=== PATIENT | male | born 1950 | race Caucasian/White ===

== ENCOUNTER 2017-02-27 01:05 | Inpatient (IN) | payer OTHER, MEDICAID ==
[~2017-02-27] VITALS: Ht 180.3 cm; Wt 113.8 kg
[~2017-02-27 01:05] MED LIST: ACET-1770 PO; AMOX1TAB64 PO; ASPI-496 PO; ASPI-621 PO; ATOR10TA PO; CARV12.52 PO; CHLO10TA2 PO; CLOP75TA22; DIVA250T4 PO; DOCU-30 PO; ENAL5TAB34 PO; FAMO-79 PO; FINA5TAB PO; FINA5TAB4 PO; HYDR-3138 PO; HYDR-3341 PO; INSU100C SQ-INSULIN; INSU100V10 SQ-INSULIN; LEVO750T26 PO; LISI-170 PO; LISI5TAB7 PO; MAGN400O4 PO; METF500T4 PO; METO25TA35 PO; METO25TA4 PO; MORP-52 PO; MORP30TA81 PO; NPH,100V SQ; ONDA4TAB7 PO; OXYC10TA6 PO; POLY17PO5 PO; POTA20TA91 PO; PREG100C PO; RIVA20TA PO; SIMV20TA PO; SOLI5TAB PO; TAMS-11 PO; TICA90TA PO; insulin; plavix
[2017-02-27] MEDS ORDERED: ASPIRIN 81 MG TABLET CHEW PO ONE (02:00)
[2017-02-27 02:31] LABS: BLOOD UREA NITROGEN 51 mg/dL (7-18)
[2017-02-27 02:38] LABS: ASPARTATE AMINO TRANSFERASE 1038 U/L (15-37)
[2017-02-27 02:43] LABS: IS PT STATUS REG ER OR PRE ER? YES
[2017-02-27] MEDS ORDERED: ASPIRIN 81 MG TABLET CHEW ONE (03:02)
[2017-02-27] MEDS ORDERED: SODIUM CHLORIDE 0.9% 1,000 ML IV ONE (04:15)
[2017-02-27] MEDS ORDERED: POLYETHYLENE GLYCOL 17 GM PACKET PO PRN (06:00)
[2017-02-27] MEDS ORDERED: DOCUSATE 100 MG CAPSULE PO PRN (06:00)
[2017-02-27] MEDS ORDERED: morphine SULFATE 10 MG/ML, 1ML IVPush PRN (06:00)
[2017-02-27] MEDS ORDERED: HYDROcodone/APAP 5/325 TABLET PO PRN (06:00)
[2017-02-27] MEDS ORDERED: ONDANSETRON 2MG/ML, 2ML IVPush PRN (06:00)
[2017-02-27] MEDS ORDERED: ACETAMINOPHEN 325 MG TABLET PO PRN (06:00)
[2017-02-27] MEDS: ENOXAPARIN 40 MG/0.4 ML SQ SCH (06:03)
[2017-02-27] MEDS: SODIUM CHLORIDE 0.9% 1,000 ML IV SCH ×2 (06:03→21:58)
[2017-02-27 06:31] VITALS: BP 98/62
[2017-02-27] MEDS: CARVEDILOL 12.5 MG TABLET PO SCH ×2 (06:39→16:58)
[2017-02-27] MEDS: INSULIN ASPART 100 UNITS/ML, PEN SQ-INSULIN SCH ×4 (07:00→21:00)
[2017-02-27] MEDS ORDERED: DIVALPROEX 125 MG TABLET.DR PO SCH (09:00)
[2017-02-27] MEDS: SENNA/DOCUSATE TABLET PO SCH (09:00)
[2017-02-27] MEDS: TICAGRELOR 90 MG TABLET PO SCH ×2 (11:54→21:59)
[2017-02-27] MEDS: FINASTERIDE 5 MG TABLET PO SCH (11:54)
[2017-02-27] MEDS: PREGABALIN 100 MG CAPSULE PO SCH ×3 (11:55→21:59)
[2017-02-27] MEDS: ASPIRIN 81 MG TABLET EC PO SCH (11:55)
[2017-02-27] MEDS: DIVALPROEX 125 MG CAP.SPRINK PO SCH ×2 (12:10→21:59)
[2017-02-27 12:38] VITALS: BP 121/68
[2017-02-27 16:53] VITALS: BP 144/101
[2017-02-27 17:51] VITALS: BP 136/89
[2017-02-27 19:43] VITALS: BP 143/73
[2017-02-27] MEDS: FAMOTIDINE 20 MG TABLET PO SCH (21:59)
[2017-02-27] MEDS: TAMSULOSIN 0.4 MG CAP.ER.24H PO SCH (21:59)
[2017-02-28 01:21] VITALS: BP 111/59
[2017-02-28] MEDS: CARVEDILOL 12.5 MG TABLET PO SCH ×2 (06:00→16:55)
[2017-02-28] MEDS: ENOXAPARIN 40 MG/0.4 ML SQ SCH (06:00)
[2017-02-28 06:09] VITALS: BP 120/72
[2017-02-28 07:35] VITALS: BP 117/48
[2017-02-28 08:57] VITALS: BP 124/67
[2017-02-28] MEDS: FINASTERIDE 5 MG TABLET PO SCH (08:58)
[2017-02-28] MEDS: ASPIRIN 81 MG TABLET EC PO SCH (08:59)
[2017-02-28] MEDS: TICAGRELOR 90 MG TABLET PO SCH ×2 (08:59→20:42)
[2017-02-28] MEDS: PREGABALIN 100 MG CAPSULE PO SCH ×3 (08:59→20:42)
[2017-02-28] MEDS: SENNA/DOCUSATE TABLET PO SCH (08:59)
[2017-02-28] MEDS: DIVALPROEX 125 MG CAP.SPRINK PO SCH ×2 (08:59→20:40)
[2017-02-28] MEDS: INSULIN ASPART 100 UNITS/ML, PEN SQ-INSULIN SCH ×4 (09:48→20:40)
[2017-02-28 12:45] VITALS: BP 125/55
[2017-02-28 19:00] VITALS: BP 125/73
[2017-02-28] MEDS: TAMSULOSIN 0.4 MG CAP.ER.24H PO SCH (20:40)
[2017-02-28] MEDS: FAMOTIDINE 20 MG TABLET PO SCH (20:41)
[2017-03-01 01:01] VITALS: BP 104/69
[2017-03-01] MEDS: CARVEDILOL 12.5 MG TABLET PO SCH ×2 (05:06→17:48)
[2017-03-01] MEDS: ENOXAPARIN 40 MG/0.4 ML SQ SCH (05:12)
[2017-03-01 05:44] LABS: ASPARTATE AMINO TRANSFERASE 72 U/L (15-37); BLOOD UREA NITROGEN 31 mg/dL (7-18)
[2017-03-01 06:12] LABS: DIFF TOTAL CELLS COUNTED 100 CELL DIFF
[2017-03-01 06:20] LABS: ANISOCYTOSIS 1+; VERIFY COUNTS? YES
[2017-03-01 06:21] LABS: HYPOCHROMIA 1+; POLYCHROMASIA 1+
[2017-03-01 06:52] VITALS: BP 133/70
[2017-03-01] MEDS: INSULIN ASPART 100 UNITS/ML, PEN SQ-INSULIN SCH ×4 (08:49→21:39)
[2017-03-01] MEDS: TICAGRELOR 90 MG TABLET PO SCH ×2 (08:50→21:38)
[2017-03-01] MEDS: FINASTERIDE 5 MG TABLET PO SCH (08:50)
[2017-03-01] MEDS: PREGABALIN 100 MG CAPSULE PO SCH ×3 (08:50→21:38)
[2017-03-01] MEDS: ASPIRIN 81 MG TABLET EC PO SCH (08:50)
[2017-03-01] MEDS: DIVALPROEX 125 MG CAP.SPRINK PO SCH ×2 (08:50→21:38)
[2017-03-01] MEDS: SENNA/DOCUSATE TABLET PO SCH (08:57)
[2017-03-01 12:32] VITALS: BP 147/77
[2017-03-01 12:39] LABS: IS PT STATUS REG ER OR PRE ER? NO
[2017-03-01] MEDS: SODIUM CHLORIDE 0.9% 1,000 ML IV SCH (13:14)
[2017-03-01 14:30] LABS: IS PT STATUS REG ER OR PRE ER? NO
[2017-03-01 19:10] VITALS: BP 138/80
[2017-03-01] MEDS: FAMOTIDINE 20 MG TABLET PO SCH (21:38)
[2017-03-01] MEDS: TAMSULOSIN 0.4 MG CAP.ER.24H PO SCH (21:38)
[2017-03-02 01:00] VITALS: BP 136/74
[2017-03-02] MEDS: ENOXAPARIN 40 MG/0.4 ML SQ SCH (05:26)
[2017-03-02] MEDS: SODIUM CHLORIDE 0.9% 1,000 ML IV SCH (05:26)
[2017-03-02] MEDS: CARVEDILOL 12.5 MG TABLET PO SCH ×2 (05:26→16:49)
[2017-03-02 06:27] LABS: ASPARTATE AMINO TRANSFERASE 37 U/L (15-37); BLOOD UREA NITROGEN 25 mg/dL (7-18)
[2017-03-02] MEDS: INSULIN ASPART 100 UNITS/ML, PEN SQ-INSULIN SCH ×3 (07:00→16:00)
[2017-03-02 07:05] VITALS: BP 145/77
[2017-03-02] MEDS: SENNA/DOCUSATE TABLET PO SCH (09:00)
[2017-03-02] MEDS: FINASTERIDE 5 MG TABLET PO SCH (09:10)
[2017-03-02] MEDS: TICAGRELOR 90 MG TABLET PO SCH (09:10)
[2017-03-02] MEDS: ASPIRIN 81 MG TABLET EC PO SCH (09:10)
[2017-03-02] MEDS: PREGABALIN 100 MG CAPSULE PO SCH ×2 (09:10→16:49)
[2017-03-02] MEDS: DIVALPROEX 125 MG CAP.SPRINK PO SCH (09:10)
[2017-03-02 12:10] VITALS: BP 123/66
== END 2017-03-02 17:09 | disposition home or self-care (01) | DRG 683 ==
LOC: ED 03:08 → EDIP 04:15 → 4EST 05:45
PROVIDERS: ADMIT Family Medicine; ATTEND Family Medicine
DX: N17.0 Acute kidney failure with tubular necrosis (principal); I50.22 Chronic systolic (congestive) heart failure; E44.0 Moderate protein-calorie malnutrition; R07.9 Chest pain, unspecified; D64.9 Anemia, unspecified; E11.42 Type 2 diabetes mellitus with diabetic polyneuropathy; E11.65 Type 2 diabetes mellitus with hyperglycemia; E86.0 Dehydration; Z66 Do not resuscitate; I25.10 Atherosclerotic heart disease of native coronary artery without angina pectoris; I11.0 Hypertensive heart disease with heart failure; I25.2 Old myocardial infarction; E66.01 Morbid (severe) obesity due to excess calories; R74.0 Nonspecific elevation of levels of transaminase and lactic acid dehydrogenase [LDH]; Z53.20 Procedure and treatment not carried out because of patient's decision for unspecified reasons; E11.51 Type 2 diabetes mellitus with diabetic peripheral angiopathy without gangrene; J44.9 Chronic obstructive pulmonary disease, unspecified; Z86.73 Personal history of transient ischemic attack (TIA), and cerebral infarction without residual deficits; Z89.511 Acquired absence of right leg below knee; Z95.1 Presence of aortocoronary bypass graft; Z95.5 Presence of coronary angioplasty implant and graft; Z90.49 Acquired absence of other specified parts of digestive tract; Z68.35 Body mass index [BMI] 35.0-35.9, adult; Z79.82 Long term (current) use of aspirin; Z79.4 Long term (current) use of insulin; Z79.899 Other long term (current) drug therapy; Z81.1 Family history of alcohol abuse and dependence; Z82.49 Family history of ischemic heart disease and other diseases of the circulatory system
CPT/HCPCS: 36415; 71010; 76700; 80053; 82962; 83690; 84484; 85025; 93005; 93306; 99285; J1650; J1815; J7030

== ENCOUNTER 2017-07-09 15:54 | Inpatient (IN) | payer OTHER, MEDICAID ==
[~2017-07-09] VITALS: Ht 180.3 cm; Wt 101.0 kg
[~2017-07-09 15:54] MED LIST changes: -CLOP75TA22; +CLOP75TA52; +DOCU-131 PO; -DOCU-30 PO; -ENAL5TAB34 PO; +ENAL5TAB70 PO; -HYDR-3138 PO; +HYDR-3237 PO; -INSU100V10 SQ-INSULIN; +INSU100V11 SQ-INSULIN; -MAGN400O4 PO; +MAGN400O7 PO; -SOLI5TAB PO; +SOLI5TAB2 PO
[2017-07-09] MEDS ORDERED: FURO40TA6 PO (16:17)
[2017-07-09] MEDS ORDERED: GLIP5POW PO (16:17)
[2017-07-09] MEDS ORDERED: POLY17PO3 PO (16:17)
[2017-07-09] MEDS ORDERED: LACT1CAP24 PO (16:17)
[2017-07-09] MEDS ORDERED: CALC-451 PO (16:17)
[2017-07-09] MEDS ORDERED: NPH,100V SQ (16:17)
[2017-07-09] MEDS ORDERED: POTA99TA24 PO (16:17)
[2017-07-09] MEDS ORDERED: MELA3TAB62 PO (16:17)
[2017-07-09] MEDS ORDERED: LOVA20TA2 PO (16:17)
[2017-07-09] MEDS ORDERED: SODIUM CHLORIDE FLUSH 10ML SYR IVF ONE (16:30)
[2017-07-09] MEDS ORDERED: PIPERACILLIN/TAZO/PMX 3.375GM 50 ML IVPB ONE (16:30)
[2017-07-09] MEDS ORDERED: PIPERACILLIN/TAZO/PMX 3.375GM 50 ML ONE (16:54)
[2017-07-09 17:43] LABS: HEMATOCRIT 35.6 % (39.2-51.8); HEMOGLOBIN 11.9 g/dL (13.7-18.0); WHITE BLOOD COUNT 10.4 x10^3/uL (3.4-10)
[2017-07-09 17:52] LABS: ASPARTATE AMINO TRANSFERASE 11 U/L (15-37); BLOOD UREA NITROGEN 52 mg/dL (7-18)
[2017-07-09 19:00] VITALS: BP 105/63
[2017-07-09] MEDS ORDERED: hydrALAzine 20 MG/ML, 1ML IVPush PRN (19:00)
[2017-07-09] MEDS: CARVEDILOL 12.5 MG TABLET PO SCH (19:00)
[2017-07-09] MEDS ORDERED: ONDANSETRON ODT 4 MG PO PRN (19:00)
[2017-07-09] MEDS ORDERED: DOCUSATE 100 MG CAPSULE PO PRN (19:00)
[2017-07-09] MEDS ORDERED: ACETAMINOPHEN 325 MG TABLET PO PRN (19:00)
[2017-07-09] MEDS ORDERED: PHARMACY MAY ADJ FOR RENAL FX MC PRN (20:00)
[2017-07-09] MEDS ORDERED: MELATONIN 3 MG TABLET PO PRN (21:00)
[2017-07-09] MEDS: FAMOTIDINE 20 MG TABLET PO SCH (22:01)
[2017-07-09] MEDS: TICAGRELOR 90 MG TABLET PO SCH (22:01)
[2017-07-09] MEDS: PREGABALIN 100 MG CAPSULE PO SCH (22:01)
[2017-07-09] MEDS: TAMSULOSIN 0.4 MG CAP.ER.24H PO SCH (22:02)
[2017-07-09] MEDS: LACTOBACILLUS CHEW TABLET PO SCH (22:02)
[2017-07-09] MEDS: DIVALPROEX 125 MG TABLET.DR PO SCH (22:02)
[2017-07-09] MEDS: FUROSEMIDE 40 MG TABLET PO SCH (22:02)
[2017-07-09] MEDS: CALCIUM/VITAMIN D3 250-125 TABLET PO SCH (22:03)
[2017-07-09] MEDS: LOVASTATIN 40 MG TABLET PO SCH (22:03)
[2017-07-09] MEDS: HEPARIN 5,000 UNITS/ML, 1ML SQ SCH (22:04)
[2017-07-09] MEDS: INSULIN ASPART 100 UNITS/ML, PEN SQ-INSULIN SCH (22:28)
[2017-07-09] MEDS: INSULIN NPH HUMAN 100 UNIT/ML, 3ML VIAL SQ-INSULIN SCH (22:29)
[2017-07-10] MEDS: PIPERACILLIN/TAZO/PMX 3.375GM 50 ML IV SCH ×3 (00:52→16:09)
[2017-07-10 03:25] VITALS: BP 105/63
[2017-07-10 05:08] VITALS: BP 110/70
[2017-07-10] MEDS: PREGABALIN 100 MG CAPSULE PO SCH ×3 (05:40→23:04)
[2017-07-10] MEDS: HEPARIN 5,000 UNITS/ML, 1ML SQ SCH ×3 (05:41→23:04)
[2017-07-10] MEDS: CARVEDILOL 12.5 MG TABLET PO SCH ×2 (05:43→17:59)
[2017-07-10 05:44] VITALS: BP 102/64
[2017-07-10 07:42] VITALS: BP 128/75
[2017-07-10] MEDS: INSULIN ASPART 100 UNITS/ML, PEN SQ-INSULIN SCH ×4 (08:40→21:00)
[2017-07-10] MEDS ORDERED: LISINOPRIL 20 MG TABLET PO SCH (09:00)
[2017-07-10] MEDS ORDERED: POTASSIUM CHLORIDE 20 MEQ TAB.ER.PRT PO SCH (09:00)
[2017-07-10] MEDS: INSULIN NPH HUMAN 100 UNIT/ML, 3ML VIAL SQ-INSULIN SCH ×2 (11:54→23:04)
[2017-07-10 12:09] VITALS: BP 120/63
[2017-07-10] MEDS: FINASTERIDE 5 MG TABLET PO SCH (13:19)
[2017-07-10] MEDS: FUROSEMIDE 40 MG TABLET PO SCH (13:19)
[2017-07-10] MEDS: LACTOBACILLUS CHEW TABLET PO SCH ×2 (13:20→22:08)
[2017-07-10] MEDS: DIVALPROEX 125 MG TABLET.DR PO SCH ×2 (13:20→22:08)
[2017-07-10] MEDS: CALCIUM/VITAMIN D3 250-125 TABLET PO SCH ×2 (13:20→22:08)
[2017-07-10] MEDS: TICAGRELOR 90 MG TABLET PO SCH ×2 (13:20→22:08)
[2017-07-10] MEDS: POLYETHYLENE GLYCOL 17 GM PACKET PO SCH (13:25)
[2017-07-10] MEDS ORDERED: LABETALOL 5MG/ML, 20ML IVPush PRN (16:00)
[2017-07-10] MEDS: SODIUM CHLORIDE 0.9% 1,000 ML IV SCH (16:09)
[2017-07-10] MEDS: LINEZOLID PMX 600MG/300ML 300 ML IV SCH (17:58)
[2017-07-10 20:00] VITALS: BP 115/72
[2017-07-10] MEDS: TAMSULOSIN 0.4 MG CAP.ER.24H PO SCH (22:08)
[2017-07-10] MEDS: FAMOTIDINE 20 MG TABLET PO SCH (22:08)
[2017-07-10] MEDS: LOVASTATIN 40 MG TABLET PO SCH (22:09)
[2017-07-11] MEDS: PIPERACILLIN/TAZO/PMX 3.375GM 50 ML IV SCH ×3 (00:42→17:25)
[2017-07-11 02:00] VITALS: BP 117/70
[2017-07-11] MEDS: PREGABALIN 100 MG CAPSULE PO SCH ×3 (05:20→21:46)
[2017-07-11] MEDS: LINEZOLID PMX 600MG/300ML 300 ML IV SCH ×2 (05:20→17:00)
[2017-07-11] MEDS: CARVEDILOL 12.5 MG TABLET PO SCH ×2 (05:20→18:00)
[2017-07-11] MEDS: HEPARIN 5,000 UNITS/ML, 1ML SQ SCH ×3 (05:30→21:48)
[2017-07-11 06:07] LABS: BLOOD UREA NITROGEN 49 mg/dL (7-18)
[2017-07-11 06:14] LABS: HEMATOCRIT 34.5 % (39.2-51.8); HEMOGLOBIN 11.6 g/dL (13.7-18.0)
[2017-07-11 06:50] VITALS: BP 117/69
[2017-07-11] MEDS: INSULIN ASPART 100 UNITS/ML, PEN SQ-INSULIN SCH ×4 (08:27→21:00)
[2017-07-11] MEDS: FINASTERIDE 5 MG TABLET PO SCH (08:36)
[2017-07-11] MEDS: LACTOBACILLUS CHEW TABLET PO SCH ×2 (08:37→21:46)
[2017-07-11] MEDS: DIVALPROEX 125 MG TABLET.DR PO SCH ×2 (08:37→21:46)
[2017-07-11] MEDS: CALCIUM/VITAMIN D3 250-125 TABLET PO SCH ×2 (08:37→21:47)
[2017-07-11] MEDS: TICAGRELOR 90 MG TABLET PO SCH ×2 (08:38→21:47)
[2017-07-11] MEDS: POLYETHYLENE GLYCOL 17 GM PACKET PO SCH (08:39)
[2017-07-11] MEDS: SODIUM CHLORIDE 0.9% 1,000 ML IV SCH (08:39)
[2017-07-11] MEDS: INSULIN NPH HUMAN 100 UNIT/ML, 3ML VIAL SQ-INSULIN SCH (08:44)
[2017-07-11 13:29] VITALS: BP 120/73
[2017-07-11] MEDS: INSULIN DETEMIR 100 UNITS/ML, PEN SQ-INSULIN SCH (18:00)
[2017-07-11 19:28] VITALS: BP 130/77
[2017-07-11] MEDS: LOVASTATIN 40 MG TABLET PO SCH (21:46)
[2017-07-11] MEDS: FAMOTIDINE 20 MG TABLET PO SCH (21:47)
[2017-07-11] MEDS: TAMSULOSIN 0.4 MG CAP.ER.24H PO SCH (21:47)
[2017-07-12] MEDS: PIPERACILLIN/TAZO/PMX 3.375GM 50 ML IV SCH ×3 (00:21→16:26)
[2017-07-12 01:22] VITALS: BP 150/74
[2017-07-12] MEDS: LINEZOLID PMX 600MG/300ML 300 ML IV SCH ×2 (05:12→17:39)
[2017-07-12] MEDS: PREGABALIN 100 MG CAPSULE PO SCH ×3 (06:17→21:07)
[2017-07-12] MEDS: HEPARIN 5,000 UNITS/ML, 1ML SQ SCH ×3 (06:18→21:07)
[2017-07-12] MEDS: CARVEDILOL 12.5 MG TABLET PO SCH ×2 (06:18→17:39)
[2017-07-12 06:40] VITALS: BP 148/79
[2017-07-12] MEDS: INSULIN DETEMIR 100 UNITS/ML, PEN SQ-INSULIN SCH ×2 (07:00→19:24)
[2017-07-12] MEDS: INSULIN ASPART 100 UNITS/ML, PEN SQ-INSULIN SCH ×4 (07:00→21:00)
[2017-07-12 07:24] LABS: BLOOD UREA NITROGEN 36 mg/dL (7-18)
[2017-07-12 08:03] LABS: HEMATOCRIT 34.8 % (39.2-51.8); HEMOGLOBIN 11.7 g/dL (13.7-18.0); WHITE BLOOD COUNT 4.5 x10^3/uL (3.4-10)
[2017-07-12] MEDS: POLYETHYLENE GLYCOL 17 GM PACKET PO SCH (09:00)
[2017-07-12] MEDS: FINASTERIDE 5 MG TABLET PO SCH (09:23)
[2017-07-12] MEDS: TICAGRELOR 90 MG TABLET PO SCH ×2 (09:23→21:05)
[2017-07-12] MEDS: CALCIUM/VITAMIN D3 250-125 TABLET PO SCH ×2 (09:23→21:05)
[2017-07-12] MEDS: LACTOBACILLUS CHEW TABLET PO SCH ×2 (09:23→21:05)
[2017-07-12] MEDS: DIVALPROEX 125 MG TABLET.DR PO SCH ×2 (09:23→21:06)
[2017-07-12] MEDS ORDERED: FENTANYL PF 100 MCG/2ML ONE (11:40)
[2017-07-12] MEDS ORDERED: NALOXONE 1 MG/ML, 2ML ONE (11:40)
[2017-07-12] MEDS ORDERED: HEPARIN 1,000 UNITS/ML, 10ML ONE (11:40)
[2017-07-12] MEDS ORDERED: FLUMAZENIL 0.1 MG/1 ML, 5ML ONE (11:40)
[2017-07-12] MEDS ORDERED: PROTAMINE SULFATE 10 MG/ML, 25ML ONE (11:40)
[2017-07-12] MEDS ORDERED: LIDOCAINE 2%, 20ML ONE (11:51)
[2017-07-12] MEDS ORDERED: VISIPAQUE 270 MG/ML, 150ML BOTTLE ONE (12:41)
[2017-07-12 12:45] VITALS: BP 150/91
[2017-07-12] MEDS: SODIUM CHLORIDE 0.9% 1,000 ML IV SCH (16:27)
[2017-07-12 19:40] VITALS: BP 119/66
[2017-07-12] MEDS: LOVASTATIN 40 MG TABLET PO SCH (21:05)
[2017-07-12] MEDS: TAMSULOSIN 0.4 MG CAP.ER.24H PO SCH (21:06)
[2017-07-12] MEDS: FAMOTIDINE 20 MG TABLET PO SCH (21:07)
[2017-07-13] MEDS: PIPERACILLIN/TAZO/PMX 3.375GM 50 ML IV SCH ×3 (00:22→17:11)
[2017-07-13 02:11] VITALS: BP 136/59
[2017-07-13] MEDS: SODIUM CHLORIDE 0.9% 1,000 ML IV SCH ×2 (02:48→14:12)
[2017-07-13] MEDS: LINEZOLID PMX 600MG/300ML 300 ML IV SCH ×2 (05:00→18:11)
[2017-07-13 05:59] LABS: HEMATOCRIT 31.9 % (39.2-51.8); HEMOGLOBIN 10.8 g/dL (13.7-18.0); WHITE BLOOD COUNT 5.2 x10^3/uL (3.4-10)
[2017-07-13 06:04] LABS: BLOOD UREA NITROGEN 23 mg/dL (7-18)
[2017-07-13] MEDS: PREGABALIN 100 MG CAPSULE PO SCH ×3 (06:13→20:54)
[2017-07-13] MEDS: HEPARIN 5,000 UNITS/ML, 1ML SQ SCH ×3 (06:13→19:47)
[2017-07-13] MEDS: INSULIN ASPART 100 UNITS/ML, PEN SQ-INSULIN SCH ×4 (07:00→20:40)
[2017-07-13] MEDS: CARVEDILOL 12.5 MG TABLET PO SCH ×2 (07:00→17:17)
[2017-07-13 08:25] VITALS: BP 153/75
[2017-07-13] MEDS: INSULIN DETEMIR 100 UNITS/ML, PEN SQ-INSULIN SCH ×2 (08:58→19:00)
[2017-07-13] MEDS: DIVALPROEX 125 MG TABLET.DR PO SCH ×2 (08:59→20:52)
[2017-07-13] MEDS: LACTOBACILLUS CHEW TABLET PO SCH ×2 (08:59→20:52)
[2017-07-13] MEDS: CALCIUM/VITAMIN D3 250-125 TABLET PO SCH ×2 (08:59→20:52)
[2017-07-13] MEDS: FINASTERIDE 5 MG TABLET PO SCH (08:59)
[2017-07-13] MEDS: TICAGRELOR 90 MG TABLET PO SCH ×2 (08:59→19:46)
[2017-07-13] MEDS: POLYETHYLENE GLYCOL 17 GM PACKET PO SCH (09:00)
[2017-07-13 13:48] VITALS: BP 151/64
[2017-07-13 19:44] VITALS: BP 170/69
[2017-07-13] MEDS: TAMSULOSIN 0.4 MG CAP.ER.24H PO SCH (20:52)
[2017-07-13] MEDS: FAMOTIDINE 20 MG TABLET PO SCH (20:52)
[2017-07-13] MEDS: LOVASTATIN 40 MG TABLET PO SCH (20:53)
[2017-07-14 01:09] VITALS: BP 135/63
[2017-07-14] MEDS: PIPERACILLIN/TAZO/PMX 3.375GM 50 ML IV SCH ×3 (01:10→16:29)
[2017-07-14] MEDS: SODIUM CHLORIDE 0.9% 1,000 ML IV SCH ×3 (01:10→17:18)
[2017-07-14] MEDS: LINEZOLID PMX 600MG/300ML 300 ML IV SCH ×2 (04:20→17:17)
[2017-07-14] MEDS: CARVEDILOL 6.25 MG TABLET PO SCH ×2 (04:22→18:43)
[2017-07-14] MEDS: PREGABALIN 100 MG CAPSULE PO SCH ×3 (04:23→20:56)
[2017-07-14] MEDS: HEPARIN 5,000 UNITS/ML, 1ML SQ SCH (04:50)
[2017-07-14 05:57] LABS: HEMATOCRIT 35.6 % (39.2-51.8)
[2017-07-14 06:06] LABS: BLOOD UREA NITROGEN 16 mg/dL (7-18)
[2017-07-14] MEDS ORDERED: PROTAMINE SULFATE 10 MG/ML, 5ML ONE (06:48)
[2017-07-14] MEDS ORDERED: THROMBIN 20,000 UNIT VIAL TP ONE (06:48)
[2017-07-14] MEDS ORDERED: HEPARIN 1,000 UNITS/ML, 10ML ONE (06:48)
[2017-07-14] MEDS ORDERED: PAPAVERINE 30 MG/ML, 2ML ONE (06:53)
[2017-07-14] MEDS: INSULIN ASPART 100 UNITS/ML, PEN SQ-INSULIN SCH ×4 (07:00→20:58)
[2017-07-14] MEDS: INSULIN DETEMIR 100 UNITS/ML, PEN SQ-INSULIN SCH ×2 (07:00→20:57)
[2017-07-14 07:17] VITALS: BP 160/76
[2017-07-14] MEDS ORDERED: FENTANYL PF 100 MCG/2ML ONE ×4 (08:12→11:45)
[2017-07-14] MEDS ORDERED: MIDAZOLAM 1 MG/ML, 2ML ONE (08:12)
[2017-07-14] MEDS ORDERED: PHENYLEPHRINE 10 MG/ML ONE (08:13)
[2017-07-14] MEDS ORDERED: ROCURONIUM 10 MG/ML,10ML ONE ×2 (08:13→08:37)
[2017-07-14] MEDS ORDERED: PROPOFOL 10 MG/ML, 20ML ONE (08:37)
[2017-07-14] MEDS ORDERED: DEXAMETHASONE 4 MG/ML, 1ML ONE ×2 (08:38→10:25)
[2017-07-14] MEDS ORDERED: ONDANSETRON 2MG/ML, 2ML ONE ×2 (08:38→10:25)
[2017-07-14] MEDS ORDERED: CEFAZOLIN 1,000 MG ONE ×2 (08:38→10:25)
[2017-07-14] MEDS: TICAGRELOR 90 MG TABLET PO SCH ×2 (09:00→20:55)
[2017-07-14] MEDS: CALCIUM/VITAMIN D3 250-125 TABLET PO SCH ×2 (09:00→20:56)
[2017-07-14] MEDS: DIVALPROEX 125 MG TABLET.DR PO SCH ×2 (09:00→20:56)
[2017-07-14] MEDS: POLYETHYLENE GLYCOL 17 GM PACKET PO SCH (09:00)
[2017-07-14] MEDS: FINASTERIDE 5 MG TABLET PO SCH (09:00)
[2017-07-14] MEDS: LACTOBACILLUS CHEW TABLET PO SCH ×2 (09:00→20:54)
[2017-07-14] MEDS ORDERED: MEPERIDINE/PF 25MG/0.5ML IVPush PRN (09:30)
[2017-07-14] MEDS ORDERED: MIDAZOLAM 1 MG/ML, 2ML IV PRN (09:30)
[2017-07-14] MEDS ORDERED: ALBUTEROL SULFATE 2.5 MG/3 ML NPPB PRN (09:30)
[2017-07-14] MEDS ORDERED: PROMETHAZINE 25 MG/ML, 1ML IV PRN (09:30)
[2017-07-14] MEDS ORDERED: OXYcodone 5 MG/5 ML ORAL.SOL UDC PO PRN (09:30)
[2017-07-14] MEDS ORDERED: ONDANSETRON 2MG/ML, 2ML IVPush PRN (09:30)
[2017-07-14] MEDS ORDERED: CALCIUM CHLORIDE 10%, 10ML SYR ONE (10:08)
[2017-07-14] MEDS ORDERED: NEOSTIGMINE 1 MG/ML, 10ML ONE (10:16)
[2017-07-14] MEDS ORDERED: GLYCOPYRROLATE 0.4 MG/2 ML, 2ML ONE (10:16)
[2017-07-14] MEDS ORDERED: LIDOCAINE GEL 2%, 5ML ONE (10:17)
[2017-07-14] MEDS ORDERED: hydrALAzine 20 MG/ML, 1ML ONE (11:07)
[2017-07-14] MEDS ORDERED: LABETALOL 5MG/ML, 20ML ONE (11:07)
[2017-07-14] MEDS: LABETALOL 5MG/ML, 20ML IV PRN ×2 (11:08→11:25)
[2017-07-14] MEDS ORDERED: ALBUTEROL/IPRATROPIUM 2.5MG/0.5MG, 3 ML ONE (11:11)
[2017-07-14] MEDS: hydrALAzine 20 MG/ML, 1ML IV PRN ×2 (11:18→12:04)
[2017-07-14] MEDS ORDERED: ACETAMINOPHEN 650 MG/20.3 ML UDC ONE (11:45)
[2017-07-14] MEDS ORDERED: OXYcodone 5 MG/5 ML ORAL.SOL UDC ONE (11:46)
[2017-07-14] MEDS: FENTANYL PF 100 MCG/2ML IV PRN ×2 (11:52→11:57)
[2017-07-14] MEDS ORDERED: HYDROmorphone 1 MG/ML, 1ML ONE (12:05)
[2017-07-14] MEDS: HYDROmorphone 1 MG/ML, 1ML IV PRN ×4 (12:07→12:48)
[2017-07-14 13:10] VITALS: BP 132/72
[2017-07-14] MEDS ORDERED: morphine SULFATE 10 MG/ML, 1ML IVPush PRN (14:00)
[2017-07-14] MEDS ORDERED: hydrALAzine 20 MG/ML, 1ML IVPush PRN (16:38)
[2017-07-14 18:43] VITALS: BP 140/80
[2017-07-14] MEDS: FUROSEMIDE 40 MG TABLET PO SCH (20:54)
[2017-07-14] MEDS: TAMSULOSIN 0.4 MG CAP.ER.24H PO SCH (20:55)
[2017-07-14] MEDS: FAMOTIDINE 20 MG TABLET PO SCH (20:56)
[2017-07-14] MEDS: LOVASTATIN 40 MG TABLET PO SCH (20:56)
[2017-07-14 23:56] VITALS: BP 148/72
[2017-07-15] MEDS: PIPERACILLIN/TAZO/PMX 3.375GM 50 ML IV SCH ×2 (00:31→08:40)
[2017-07-15 03:36] VITALS: BP 149/73
[2017-07-15] MEDS: LINEZOLID PMX 600MG/300ML 300 ML IV SCH ×2 (05:22→16:50)
[2017-07-15] MEDS: CARVEDILOL 6.25 MG TABLET PO SCH ×2 (07:16→16:50)
[2017-07-15] MEDS: PREGABALIN 100 MG CAPSULE PO SCH ×3 (07:16→22:25)
[2017-07-15 07:53] VITALS: BP 137/67
[2017-07-15] MEDS: INSULIN ASPART 100 UNITS/ML, PEN SQ-INSULIN SCH ×4 (07:58→20:28)
[2017-07-15] MEDS: POTASSIUM CHLORIDE 20 MEQ TAB.ER.PRT PO SCH (08:40)
[2017-07-15] MEDS: FUROSEMIDE 40 MG TABLET PO SCH ×2 (08:40→20:27)
[2017-07-15] MEDS: FINASTERIDE 5 MG TABLET PO SCH (08:40)
[2017-07-15] MEDS: CALCIUM/VITAMIN D3 250-125 TABLET PO SCH ×2 (08:40→20:19)
[2017-07-15] MEDS: TICAGRELOR 90 MG TABLET PO SCH ×2 (08:41→20:20)
[2017-07-15] MEDS: LACTOBACILLUS CHEW TABLET PO SCH ×3 (08:41→20:26)
[2017-07-15] MEDS: POLYETHYLENE GLYCOL 17 GM PACKET PO SCH (08:41)
[2017-07-15] MEDS: DIVALPROEX 125 MG TABLET.DR PO SCH ×2 (08:41→20:26)
[2017-07-15] MEDS: INSULIN DETEMIR 100 UNITS/ML, PEN SQ-INSULIN SCH ×2 (08:45→22:24)
[2017-07-15 09:08] LABS: BLOOD UREA NITROGEN 16 mg/dL (7-18)
[2017-07-15 09:16] LABS: HEMATOCRIT 29.1 % (39.2-51.8); HEMOGLOBIN 9.6 g/dL (13.7-18.0); WHITE BLOOD COUNT 6.7 x10^3/uL (3.4-10)
[2017-07-15] MEDS: SODIUM CHLORIDE 0.9% 1,000 ML IV SCH ×2 (11:20→23:51)
[2017-07-15 13:25] VITALS: BP 105/63
[2017-07-15] MEDS ORDERED: POLYETHYLENE GLYCOL 17 GM PACKET PO PRN (14:00)
[2017-07-15] MEDS: AMPICILLIN/SULBACTAM 3 GM in SODIUM CHLORIDE 0.9% 100 ML IV SCH ×2 (14:45→20:32)
[2017-07-15] MEDS ORDERED: PIPERACILLIN/TAZO/PMX 3.375GM 50 ML IV SCH (15:00)
[2017-07-15 16:29] VITALS: BP 108/68
[2017-07-15 18:42] VITALS: BP 116/65
[2017-07-15] MEDS: TAMSULOSIN 0.4 MG CAP.ER.24H PO SCH (20:20)
[2017-07-15] MEDS: FAMOTIDINE 20 MG TABLET PO SCH (20:27)
[2017-07-15] MEDS: LOVASTATIN 40 MG TABLET PO SCH (22:25)
[2017-07-16] MEDS: AMPICILLIN/SULBACTAM 3 GM in SODIUM CHLORIDE 0.9% 100 ML IV SCH ×2 (02:00→08:17)
[2017-07-16 02:27] VITALS: BP 132/60
[2017-07-16] MEDS: LINEZOLID PMX 600MG/300ML 300 ML IV SCH (05:02)
[2017-07-16] MEDS: FUROSEMIDE 40 MG TABLET PO SCH ×2 (05:03→08:17)
[2017-07-16 05:12] VITALS: BP 153/76
[2017-07-16] MEDS: PREGABALIN 100 MG CAPSULE PO SCH ×2 (06:24→15:10)
[2017-07-16] MEDS: CARVEDILOL 6.25 MG TABLET PO SCH (06:24)
[2017-07-16 07:23] VITALS: BP 121/60
[2017-07-16] MEDS: INSULIN ASPART 100 UNITS/ML, PEN SQ-INSULIN SCH ×3 (07:26→17:23)
[2017-07-16] MEDS: DIVALPROEX 125 MG TABLET.DR PO SCH (08:17)
[2017-07-16] MEDS: LACTOBACILLUS CHEW TABLET PO SCH (08:17)
[2017-07-16] MEDS: FINASTERIDE 5 MG TABLET PO SCH (08:17)
[2017-07-16] MEDS: CALCIUM/VITAMIN D3 250-125 TABLET PO SCH (08:19)
[2017-07-16] MEDS: TICAGRELOR 90 MG TABLET PO SCH (08:19)
[2017-07-16] MEDS: POTASSIUM CHLORIDE 20 MEQ TAB.ER.PRT PO SCH (08:19)
[2017-07-16] MEDS: INSULIN DETEMIR 100 UNITS/ML, PEN SQ-INSULIN SCH (08:20)
[2017-07-16] MEDS ORDERED: DOCU-131 PO (11:23)
[2017-07-16] MEDS ORDERED: ACID1TAB7 PO (11:23)
[2017-07-16] MEDS ORDERED: PIPE3.373 IV (11:23)
[2017-07-16] MEDS ORDERED: INSU100I28 SQ-INSULIN (11:23)
[2017-07-16] MEDS ORDERED: TRAM50TA2 PO (11:23)
[2017-07-16] MEDS ORDERED: POTA20TA6 PO (11:23)
[2017-07-16] MEDS ORDERED: CARV6.2512 PO (11:23)
[2017-07-16] MEDS ORDERED: PIPERACILLIN/TAZO/PMX 3.375GM 50 ML IV SCH (11:30)
[2017-07-16] MEDS: SODIUM CHLORIDE 0.9% 1,000 ML IV SCH (12:10)
[2017-07-16 13:55] VITALS: BP 100/64
== END 2017-07-16 17:50 | DRG 252 ==
LOC: ED 18:06 → EDIP 18:07 → ED 18:19 → 3NE 18:49 → 4NOR 07-14 13:05
PROVIDERS: ADMIT Family Medicine; ATTEND Family Medicine
PROC: B41D1ZZ Fluoroscopy of Aorta and Bilateral Lower Extremity Arteries using Low Osmolar Contrast (ICD-10-PCS; 2017-07-12)
PROC: 041L0JL Bypass Left Femoral Artery to Popliteal Artery with Synthetic Substitute, Open Approach (ICD-10-PCS; principal; 2017-07-14 08:30)
DX: E11.51 Type 2 diabetes mellitus with diabetic peripheral angiopathy without gangrene (principal); N17.0 Acute kidney failure with tubular necrosis; E11.21 Type 2 diabetes mellitus with diabetic nephropathy; E11.622 Type 2 diabetes mellitus with other skin ulcer; L03.116 Cellulitis of left lower limb; E87.1 Hypo-osmolality and hyponatremia; L97.929 Non-pressure chronic ulcer of unspecified part of left lower leg with unspecified severity; I13.0 Hypertensive heart and chronic kidney disease with heart failure and stage 1 through stage 4 chronic kidney disease, or unspecified chronic kidney disease; I50.22 Chronic systolic (congestive) heart failure; S81.802A Unspecified open wound, left lower leg, initial encounter; E11.22 Type 2 diabetes mellitus with diabetic chronic kidney disease; J44.9 Chronic obstructive pulmonary disease, unspecified; N18.9 Chronic kidney disease, unspecified; F17.210 Nicotine dependence, cigarettes, uncomplicated; D64.9 Anemia, unspecified; F32.9 Major depressive disorder, single episode, unspecified; I25.10 Atherosclerotic heart disease of native coronary artery without angina pectoris; I77.1 Stricture of artery; K21.9 Gastro-esophageal reflux disease without esophagitis; I99.8 Other disorder of circulatory system; I25.2 Old myocardial infarction; Z71.6 Tobacco abuse counseling; Z79.4 Long term (current) use of insulin; Z80.8 Family history of malignant neoplasm of other organs or systems; Z82.3 Family history of stroke; Z83.3 Family history of diabetes mellitus; Z86.73 Personal history of transient ischemic attack (TIA), and cerebral infarction without residual deficits; Z95.1 Presence of aortocoronary bypass graft; Z90.49 Acquired absence of other specified parts of digestive tract; B95.61 Methicillin susceptible Staphylococcus aureus infection as the cause of diseases classified elsewhere
CPT/HCPCS: 36200; 36415; 75630; 76937; 80048; 80053; 82962; 83735; 83880; 85025; 85610; 85651; 86850; 86900; 87040; 87070; 87077; 87186; 87205; 87324; 93005; 93926; 93978; 94640; 96365; C1894; J0295; J0690; J1100; J1170; J1644; J1815; J2020; J2250; J2405; J2543; J2704; J2710; J2720; J3010; J3490; Q9966; C1751; C1757; C1768; C1769; J0360; J2310; J2370; J2440; J7030

== ENCOUNTER 2017-08-04 09:43 | Inpatient (IN) | payer OTHER, MEDICAID ==
[~2017-08-04] VITALS: Ht 175.3 cm; Wt 97.6 kg
[~2017-08-04 09:43] MED LIST changes: +ACID1TAB7 PO; +CALC-451 PO; +CARV6.2512 PO; +FURO40TA6 PO; +GLIP5POW PO; +INSU100I28 SQ-INSULIN; +LACT1CAP24 PO; +LOVA20TA2 PO; +MELA3TAB62 PO; +PIPE3.373 IV; +POLY17PO3 PO; +POTA20TA6 PO; +POTA99TA24 PO; +TRAM50TA2 PO
[2017-08-04] MEDS ORDERED: SODIUM CHLORIDE FLUSH 10ML SYR IVF ONE (11:00)
[2017-08-04 11:14] LABS: BASOPHILS # (AUTO) 0.02 x10^3/uL (0-0.1); BASOPHILS % (AUTO) 0 % (0-1); EOSINOPHILS # (AUTO) 0.06 x10^3/uL (0-0.4); EOSINOPHILS % (AUTO) 1 % (1-7); LYMPHOCYTES % (AUTO) 16 % (22-44); MD NO; MEAN CORPUSCULAR HEMOGLOBIN 29.2 pg (27.5-34.5); MEAN CORPUSCULAR HGB CONC 34.1 g/dL (33.2-36.2); MEAN CORPUSCULAR VOLUME 85.6 fL (81-97); MEAN PLATELET VOLUME 9.3 fL (7.4-10.4); MONOCYTES # (AUTO) 0.53 x10^3/uL (0.2-0.8); MONOCYTES % (AUTO) 9 % (2-9); NEUTROPHILS # (AUTO) 4.53 x10^3/uL (1.8-6.8); NEUTROPHILS % (AUTO) 74 % (42-75); PLATELET COUNT 222 x10^3/uL (130-400); RED BLOOD COUNT 3.32 x10^6/uL (4.38-5.82); RED CELL DISTRIBUTION WIDTH 19.7 % (9.4-14.8)
[2017-08-04 11:26] LABS: ALBUMIN 2.4 g/dL (3.4-5.0); ANION GAP 8 mmol/L (5-15); CALCIUM 8.2 mg/dL (8.5-10.1); CHLORIDE 110 mmol/L (98-107)
[2017-08-04 11:32] LABS: ACETAMINOPHEN 4 mcg/mL (10-30); ALANINE AMINOTRANSFERASE 15 U/L (12-78); ALKALINE PHOSPHATASE 75 U/L (45-117); BILIRUBIN,TOTAL 0.3 mg/dL (0.2-1.0); CREATINE KINASE, TOTAL 345 U/L (39-308); CREATININE 1.81 mg/dL (0.7-1.3); SALICYLATE LEVEL 2.9 mg/dL (2.8-20.0); TOTAL PROTEIN 6.8 g/dL (6.4-8.2); TROPONIN I < 0.015 ng/mL (0.000-0.045)
[2017-08-04 12:49] LABS: MICROSCOPIC NOT IND
[2017-08-04 12:53] LABS: CULTURE INDICATED? NO
[2017-08-04 13:02] LABS: AMPHETAMINE SCREEN, URINE Negative (Negative); BARBITURATE SCREEN, URINE Negative (Negative); BENZODIAZEPINE SCREEN, URINE Negative (Negative); COCAINE SCREEN, URINE Negative (Negative); METHADONE SCREEN, URINE Negative (Negative); OPIATE SCREEN, URINE Negative (Negative)
[2017-08-04 13:03] LABS: CANNABINOID SCREEN, URINE Negative (Negative)
[2017-08-04] MEDS: SODIUM CHLORIDE 0.9% 1,000 ML IV SCH (14:42)
[2017-08-04] MEDS ORDERED: DEXTROSE 50%, 50ML SYRINGE IVPush PRN (15:00)
[2017-08-04] MEDS ORDERED: LABETALOL 5MG/ML, 20ML IVPush PRN (15:00)
[2017-08-04] MEDS ORDERED: GLUCAGON 1 MG IM PRN (15:00)
[2017-08-04] MEDS ORDERED: ONDANSETRON 2MG/ML, 2ML IVPush PRN (15:00)
[2017-08-04] MEDS ORDERED: DEXTROSE 4 GM TAB.CHEW PO PRN (15:00)
[2017-08-04] MEDS ORDERED: POLYETHYLENE GLYCOL 17 GM PACKET PO PRN (15:00)
[2017-08-04] MEDS ORDERED: DOCUSATE 100 MG CAPSULE PO PRN ×2 (15:00)
[2017-08-04] MEDS ORDERED: ACETAMINOPHEN 325 MG TABLET PO PRN (15:00)
[2017-08-04] MEDS ORDERED: BISACODYL 10 MG SUPP PR PRN (15:00)
[2017-08-04 15:30] VITALS: BP 105/57
[2017-08-04] MEDS: PREGABALIN 100 MG CAPSULE PO SCH ×2 (16:00→21:35)
[2017-08-04] MEDS: LACTOBACILLUS CHEW TABLET PO SCH ×2 (16:00→21:35)
[2017-08-04] MEDS: INSULIN DETEMIR 100 UNITS/ML, PEN SQ-INSULIN SCH (16:00)
[2017-08-04] MEDS: INSULIN ASPART 100 UNITS/ML, PEN SQ-INSULIN SCH ×2 (16:00→21:00)
[2017-08-04] MEDS: DEPAKOTE DR MC SCH (16:30)
[2017-08-04] MEDS: CARVEDILOL 6.25 MG TABLET PO SCH (17:27)
[2017-08-04] MEDS: HEPARIN 5,000 UNITS/ML, 1ML SQ SCH (17:33)
[2017-08-04 20:00] VITALS: BP 128/71
[2017-08-04] MEDS: CALCIUM CARB HOMEMEDPO SCH (21:00)
[2017-08-04] MEDS: VITAMIN D3 HOMEMEDPO SCH (21:00)
[2017-08-04] MEDS: LOVASTATIN 20 MG TABLET PO SCH (21:00)
[2017-08-04] MEDS: CIT HOMEMEDPO SCH (21:00)
[2017-08-04] MEDS: TAMSULOSIN 0.4 MG CAP.ER.24H PO SCH (21:35)
[2017-08-04] MEDS: TICAGRELOR 90 MG TABLET PO SCH (21:35)
[2017-08-04] MEDS: SODIUM CHLORIDE FLUSH 10ML SYR IVF SCH (21:35)
[2017-08-04] MEDS: FUROSEMIDE 40 MG TABLET PO SCH (21:36)
[2017-08-04] MEDS: DIVALPROEX 125 MG TABLET.DR PO SCH (21:36)
[2017-08-05] VITALS: BP 105/63
[2017-08-05] MEDS: DEPAKOTE DR MC SCH ×3 (00:02→16:30)
[2017-08-05] MEDS: HEPARIN 5,000 UNITS/ML, 1ML SQ SCH ×3 (01:11→17:35)
[2017-08-05] MEDS: SODIUM CHLORIDE 0.9% 1,000 ML IV SCH (01:11)
[2017-08-05 04:00] VITALS: BP 118/68
[2017-08-05] MEDS: CARVEDILOL 6.25 MG TABLET PO SCH ×2 (05:24→17:34)
[2017-08-05] MEDS: INSULIN DETEMIR 100 UNITS/ML, PEN SQ-INSULIN SCH ×2 (05:24→17:41)
[2017-08-05 06:24] LABS: BASOPHILS # (AUTO) 0.07 x10^3/uL (0-0.1); BASOPHILS % (AUTO) 2 % (0-1); EOSINOPHILS # (AUTO) 0.03 x10^3/uL (0-0.4); EOSINOPHILS % (AUTO) 1 % (1-7); LYMPHOCYTES # (AUTO) 1.38 x10^3/uL (1-3.4); LYMPHOCYTES % (AUTO) 30 % (22-44); MD NO; MEAN CORPUSCULAR HEMOGLOBIN 29.2 pg (27.5-34.5); MEAN CORPUSCULAR HGB CONC 33.9 g/dL (33.2-36.2); MEAN CORPUSCULAR VOLUME 86.2 fL (81-97); MEAN PLATELET VOLUME 9.4 fL (7.4-10.4); MONOCYTES # (AUTO) 0.56 x10^3/uL (0.2-0.8); MONOCYTES % (AUTO) 12 % (2-9); NEUTROPHILS # (AUTO) 2.51 x10^3/uL (1.8-6.8); NEUTROPHILS % (AUTO) 55 % (42-75); PLATELET COUNT 198 x10^3/uL (130-400); RED BLOOD COUNT 3.46 x10^6/uL (4.38-5.82); RED CELL DISTRIBUTION WIDTH 19.5 % (9.4-14.8)
[2017-08-05 06:28] LABS: CHLORIDE 109 mmol/L (98-107)
[2017-08-05 06:35] LABS: ALANINE AMINOTRANSFERASE 16 U/L (12-78); ALBUMIN 2.4 g/dL (3.4-5.0); ALKALINE PHOSPHATASE 72 U/L (45-117); ANION GAP 10 mmol/L (5-15); BILIRUBIN,TOTAL 0.4 mg/dL (0.2-1.0); CALCIUM 8.3 mg/dL (8.5-10.1); CREATININE 1.75 mg/dL (0.7-1.3)
[2017-08-05] MEDS: INSULIN ASPART 100 UNITS/ML, PEN SQ-INSULIN SCH ×4 (07:00→21:43)
[2017-08-05 07:12] VITALS: BP 111/61
[2017-08-05] MEDS: VITAMIN D3 HOMEMEDPO SCH ×2 (09:00→21:00)
[2017-08-05] MEDS: CIT HOMEMEDPO SCH ×2 (09:00→21:00)
[2017-08-05] MEDS: CALCIUM CARB HOMEMEDPO SCH ×2 (09:00→21:00)
[2017-08-05] MEDS ORDERED: LORazepam 2 MG/ML, 1ML IVPush ONE (10:00)
[2017-08-05] MEDS: POLYETHYLENE GLYCOL 17 GM PACKET PO SCH (11:25)
[2017-08-05] MEDS: LISINOPRIL 20 MG TABLET PO SCH (11:29)
[2017-08-05] MEDS: POTASSIUM CHLORIDE 20 MEQ TAB.ER.PRT PO SCH (11:30)
[2017-08-05] MEDS: TICAGRELOR 90 MG TABLET PO SCH ×2 (11:30→21:41)
[2017-08-05] MEDS: PREGABALIN 100 MG CAPSULE PO SCH ×3 (11:30→21:41)
[2017-08-05] MEDS: FUROSEMIDE 40 MG TABLET PO SCH ×2 (11:30→21:41)
[2017-08-05] MEDS: FINASTERIDE 5 MG TABLET PO SCH (11:30)
[2017-08-05] MEDS: LACTOBACILLUS CHEW TABLET PO SCH ×3 (11:31→21:41)
[2017-08-05] MEDS: SODIUM CHLORIDE FLUSH 10ML SYR IVF SCH ×2 (11:31→21:44)
[2017-08-05] MEDS: DIVALPROEX 125 MG TABLET.DR PO SCH ×2 (11:31→21:41)
[2017-08-05 12:09] VITALS: BP 128/72
[2017-08-05 16:51] LABS: FOLATE LEVEL 18.3 ng/mL (3.1-17.5); THYROID STIMULATING HORMONE 1.67 mIU/L (0.358-3.740)
[2017-08-05 19:58] VITALS: BP 128/68
[2017-08-05] MEDS: LOVASTATIN 20 MG TABLET PO SCH (21:00)
[2017-08-05] MEDS: TAMSULOSIN 0.4 MG CAP.ER.24H PO SCH (21:41)
[2017-08-06] MEDS: DEPAKOTE DR MC SCH ×3 (00:30→16:30)
[2017-08-06 00:37] VITALS: BP 109/57
[2017-08-06] MEDS: HEPARIN 5,000 UNITS/ML, 1ML SQ SCH ×3 (02:13→18:06)
[2017-08-06 05:05] LABS: ANION GAP 8 mmol/L (5-15); CALCIUM 8.3 mg/dL (8.5-10.1); CHLORIDE 107 mmol/L (98-107); CREATININE 1.74 mg/dL (0.7-1.3)
[2017-08-06] MEDS: CARVEDILOL 6.25 MG TABLET PO SCH ×3 (05:51→18:00)
[2017-08-06] MEDS: INSULIN DETEMIR 100 UNITS/ML, PEN SQ-INSULIN SCH ×3 (05:51→18:07)
[2017-08-06 07:56] VITALS: BP 107/65
[2017-08-06] MEDS: LACTOBACILLUS CHEW TABLET PO SCH ×3 (08:54→20:39)
[2017-08-06] MEDS: INSULIN ASPART 100 UNITS/ML, PEN SQ-INSULIN SCH ×4 (08:54→20:40)
[2017-08-06] MEDS: POTASSIUM CHLORIDE 20 MEQ TAB.ER.PRT PO SCH (08:56)
[2017-08-06] MEDS: FUROSEMIDE 40 MG TABLET PO SCH ×2 (08:56→20:39)
[2017-08-06] MEDS: FINASTERIDE 5 MG TABLET PO SCH (08:56)
[2017-08-06] MEDS: PREGABALIN 100 MG CAPSULE PO SCH ×3 (08:56→20:39)
[2017-08-06] MEDS: TICAGRELOR 90 MG TABLET PO SCH ×2 (08:56→20:38)
[2017-08-06] MEDS: DIVALPROEX 125 MG TABLET.DR PO SCH ×2 (08:58→20:38)
[2017-08-06] MEDS: POLYETHYLENE GLYCOL 17 GM PACKET PO SCH (09:00)
[2017-08-06] MEDS: CALCIUM CARB HOMEMEDPO SCH ×2 (09:00→20:40)
[2017-08-06] MEDS: VITAMIN D3 HOMEMEDPO SCH ×2 (09:00→20:40)
[2017-08-06] MEDS: CIT HOMEMEDPO SCH ×2 (09:00→20:40)
[2017-08-06] MEDS: SODIUM CHLORIDE FLUSH 10ML SYR IVF SCH ×2 (09:05→20:38)
[2017-08-06] MEDS: LISINOPRIL 20 MG TABLET PO SCH (09:44)
[2017-08-06] MEDS ORDERED: SULF1TAB24 PO (11:08)
[2017-08-06 13:24] VITALS: BP 97/59
[2017-08-06 18:51] VITALS: BP 94/54
[2017-08-06] MEDS: TAMSULOSIN 0.4 MG CAP.ER.24H PO SCH (20:39)
[2017-08-06] MEDS: LOVASTATIN 20 MG TABLET PO SCH (20:39)
[2017-08-07] MEDS: DEPAKOTE DR MC SCH ×2 (00:30→08:30)
[2017-08-07] MEDS: HEPARIN 5,000 UNITS/ML, 1ML SQ SCH ×2 (01:04→08:41)
[2017-08-07 01:14] VITALS: BP 95/50
[2017-08-07] MEDS: CARVEDILOL 6.25 MG TABLET PO SCH (05:41)
[2017-08-07] MEDS: INSULIN DETEMIR 100 UNITS/ML, PEN SQ-INSULIN SCH (05:50)
[2017-08-07 06:30] VITALS: BP 89/52
[2017-08-07] MEDS: INSULIN ASPART 100 UNITS/ML, PEN SQ-INSULIN SCH ×2 (08:39→12:01)
[2017-08-07] MEDS: LACTOBACILLUS CHEW TABLET PO SCH (08:40)
[2017-08-07] MEDS: POTASSIUM CHLORIDE 20 MEQ TAB.ER.PRT PO SCH (08:40)
[2017-08-07] MEDS: PREGABALIN 100 MG CAPSULE PO SCH (08:40)
[2017-08-07] MEDS: FUROSEMIDE 40 MG TABLET PO SCH (08:40)
[2017-08-07] MEDS: FINASTERIDE 5 MG TABLET PO SCH (08:40)
[2017-08-07] MEDS: POLYETHYLENE GLYCOL 17 GM PACKET PO SCH ×2 (08:41→08:51)
[2017-08-07] MEDS: DIVALPROEX 125 MG TABLET.DR PO SCH (08:41)
[2017-08-07] MEDS: TICAGRELOR 90 MG TABLET PO SCH (08:41)
[2017-08-07] MEDS: LISINOPRIL 20 MG TABLET PO SCH (08:51)
[2017-08-07] MEDS: CIT HOMEMEDPO SCH (08:52)
[2017-08-07] MEDS: CALCIUM CARB HOMEMEDPO SCH (08:52)
[2017-08-07] MEDS: VITAMIN D3 HOMEMEDPO SCH (08:52)
[2017-08-07] MEDS: SODIUM CHLORIDE FLUSH 10ML SYR IVF SCH (08:59)
[2017-08-07 12:35] VITALS: BP 83/56
[2017-08-24] MEDS ORDERED: CYAN10005 PO (10:55)
[2017-08-24] MEDS ORDERED: ENOX40SY4 SQ (10:55)
== END 2017-08-07 16:24 | disposition home or self-care (01) | DRG 71 ==
LOC: ED 10:57 → EDIP 13:20 → 4WST 15:39
PROVIDERS: ADMIT Hospitalist; ATTEND Hospitalist
DX: G93.40 Encephalopathy, unspecified (principal); L97.909 Non-pressure chronic ulcer of unspecified part of unspecified lower leg with unspecified severity; L89.302 Pressure ulcer of unspecified buttock, stage 2; E44.0 Moderate protein-calorie malnutrition; E11.22 Type 2 diabetes mellitus with diabetic chronic kidney disease; E11.622 Type 2 diabetes mellitus with other skin ulcer; J44.9 Chronic obstructive pulmonary disease, unspecified; D64.9 Anemia, unspecified; T79.6XXA Traumatic ischemia of muscle, initial encounter; E11.65 Type 2 diabetes mellitus with hyperglycemia; I12.9 Hypertensive chronic kidney disease with stage 1 through stage 4 chronic kidney disease, or unspecified chronic kidney disease; X58.XXXA Exposure to other specified factors, initial encounter; F17.210 Nicotine dependence, cigarettes, uncomplicated; I25.10 Atherosclerotic heart disease of native coronary artery without angina pectoris; N18.3 Chronic kidney disease, stage 3 (moderate); Z68.31 Body mass index [BMI] 31.0-31.9, adult; I25.2 Old myocardial infarction; Z79.4 Long term (current) use of insulin; Z82.3 Family history of stroke; Z82.49 Family history of ischemic heart disease and other diseases of the circulatory system; Z86.73 Personal history of transient ischemic attack (TIA), and cerebral infarction without residual deficits; Z89.511 Acquired absence of right leg below knee; Z95.1 Presence of aortocoronary bypass graft
CPT/HCPCS: 36415; 70450; 70551; 71010; 80048; 80053; 80307; 80329; 81003; 82140; 82550; 82607; 82746; 82962; 83605; 84443; 84484; 85025; 87040; 87070; 87077; 87186; 87205; 93005; 99285; J1644; J1815; G0479; G0480; J2060; J7030

== ENCOUNTER → 2018-05-05 | Outpatient (CLI) | payer OTHER, MEDICAID ==
[~2018-05-05] MED LIST changes: +ACET-1757 PO; +ACET650S12 PR; +ASCO500T8 PO; +BISA10SU2 PR; +CYAN10005 PO; +CYAN500T18 PO; +DIVA125T2 PO; +ENOX40SY4 SQ; +FAMO20TA7 PO; +FERR-46 PO; +LACT1CAP35 PO; +METF500T17 PO; -METF500T4 PO; +NA P133E2 PR; +NYST1POW TD; +PROHEAL PO; +SULF1TAB24 PO
== END | disposition home or self-care (01) ==
LOC: CVU 08:52
PROVIDERS: ATTEND Surgery
DX: I70.203 Unspecified atherosclerosis of native arteries of extremities, bilateral legs (principal); I12.9 Hypertensive chronic kidney disease with stage 1 through stage 4 chronic kidney disease, or unspecified chronic kidney disease; N18.3 Chronic kidney disease, stage 3 (moderate)
CPT/HCPCS: 93925

== ENCOUNTER 2018-10-16 15:45 | Inpatient (IN) | payer MEDICARE, MEDICAID ==
[~2018-10-16] VITALS: Ht 180.3 cm; Wt 81.4 kg
[~2018-10-16 15:45] MED LIST changes: -ASPI-621 PO; +ASPI81TA45 PO; +POLY17PO29 PO; -POLY17PO3 PO
--- NOTE | 2018-10-16 16:00 | NUR ---
PT BIB [facility] FOR NON RADIATING CP STARTING LAST NIGHT. NITRO X 4 TODAY WITH NO RELIEF. CONNECTED TO ALL MONITORS. VSS. AWAITING MD ASSESSMENT.
[2018-10-16] MEDS ORDERED: LISI-167 PO (16:41)
[2018-10-16] MEDS ORDERED: GLIP5TAB10 PO (16:41)
[2018-10-16] MEDS ORDERED: OXYC5CAP2 PO (16:41)
[2018-10-16] MEDS ORDERED: HYDR-3342 PO (16:41)
[2018-10-16] MEDS ORDERED: NITR0.4T28 SL (16:41)
[2018-10-16 16:57] LABS: BASOPHILS # (AUTO) 0.02 x10^3/uL (0-0.1); BASOPHILS % (AUTO) 0 % (0-1); EOSINOPHILS # (AUTO) 0.02 x10^3/uL (0-0.4); EOSINOPHILS % (AUTO) 0 % (1-7); LYMPHOCYTES # (AUTO) 0.64 x10^3/uL (1-3.4); LYMPHOCYTES % (AUTO) 7 % (22-44); MD NO; MEAN CORPUSCULAR HEMOGLOBIN 29.9 pg (27.5-34.5); MEAN CORPUSCULAR HGB CONC 33.4 g/dL (33.2-36.2); MEAN CORPUSCULAR VOLUME 89.6 fL (81-97); MONOCYTES # (AUTO) 0.67 x10^3/uL (0.2-0.8); MONOCYTES % (AUTO) 8 % (2-9); NEUTROPHILS # (AUTO) 7.62 x10^3/uL (1.8-6.8); NEUTROPHILS % (AUTO) 85 % (42-75); PLATELET COUNT 178 x10^3/uL (130-400); RED BLOOD COUNT 4.51 x10^6/uL (4.38-5.82); RED CELL DISTRIBUTION WIDTH 16.5 % (9.4-14.8)
[2018-10-16] MEDS ORDERED: MORPHINE SULFATE 4 MG/ML, 1ML IVPush PRN (17:00)
[2018-10-16] MEDS ORDERED: SODIUM CHLORIDE FLUSH 10ML SYR IVF ONE (17:00)
[2018-10-16] MEDS ORDERED: ONDANSETRON 2MG/ML, 2ML IVPush ONE (17:00)
[2018-10-16 17:05] LABS: ALBUMIN 2.6 g/dL (3.4-5.0); ANION GAP 6 mmol/L (5-15); CALCIUM 8.5 mg/dL (8.5-10.1); CHLORIDE 103 mmol/L (98-107); CREATININE 1.25 mg/dL (0.7-1.3)
[2018-10-16 17:09] LABS: TROPONIN I < 0.015 ng/mL (0.000-0.045)
[2018-10-16 17:11] LABS: INTERNATIONAL NORMALIZED RATIO 1.02 (0.93-1.1); PROTHROMBIN TIME 10.7 Seconds (9.6-11.5)
--- NOTE | 2018-10-16 17:13 | NUR ---
pt resting in room. urinal provided. no other needs at this time. vss. call [facility] and clinict within reach. awaiting results.
[2018-10-16] MEDS ORDERED: MAGNESIUM HYDROXIDE 8%, 30ML UDC PO PRN (19:30)
[2018-10-16] MEDS ORDERED: DIVALPROEX 125 MG TABLET.DR PO PRN (19:30)
[2018-10-16] MEDS ORDERED: morphine SULFATE 10 MG/ML, 1ML IVPush PRN (19:30)
[2018-10-16] MEDS ORDERED: BISACODYL 10 MG SUPP PR PRN (19:30)
[2018-10-16] MEDS ORDERED: ONDANSETRON 2MG/ML, 2ML IVPush PRN (19:30)
[2018-10-16] MEDS ORDERED: ACETAMINOPHEN 325 MG TABLET PO PRN (19:30)
[2018-10-16 19:58] LABS: HEMOGLOBIN A1C 7.6 % (4.2-6.3)
[2018-10-16] MEDS: CARVEDILOL 6.25 MG TABLET PO SCH (20:39)
[2018-10-16] MEDS: LOVASTATIN 20 MG TABLET PO SCH (20:40)
[2018-10-16] MEDS: FAMOTIDINE 20 MG TABLET PO SCH (20:40)
[2018-10-16] MEDS: HEPARIN 5,000 UNITS/ML, 1ML SQ SCH (20:41)
[2018-10-16] MEDS: SODIUM CHLORIDE FLUSH 10ML SYR IVF SCH (20:41)
[2018-10-16] MEDS: INSULIN LISPRO 100 UNITS/ML, PEN LOW DOSE SS SQ-INSULIN SCH (20:42)
[2018-10-16] MEDS ORDERED: TEMPLATE NON-FORMULARY MED. (Insulin Lispro** (Humalog**) 0 UNITS) SQ-INSULIN SCH (21:00)
[2018-10-16] MEDS ORDERED: PROHEAL PO SCH (21:00)
[2018-10-16 21:05] VITALS: BP 116/61
[2018-10-16 22:11] LABS: CULTURE INDICATED? YES; MICROSCOPIC INDICATED
[2018-10-16 22:36] LABS: TROPONIN I < 0.015 ng/mL (0.000-0.045)
[2018-10-17] VITALS (7 sets, daily range): BP systolic 89–149; BP diastolic 46–70
[2018-10-17] MEDS: NITROGLYCERIN 0.4 MG BOTTLE (25 TABS) SL PRN ×2 (01:04→01:10)
[2018-10-17] MEDS: HEPARIN 5,000 UNITS/ML, 1ML SQ SCH ×3 (03:03→19:47)
[2018-10-17 04:48] LABS: BASOPHILS # (AUTO) 0.04 x10^3/uL (0-0.1); BASOPHILS % (AUTO) 1 % (0-1); EOSINOPHILS % (AUTO) 0 % (1-7); LYMPHOCYTES # (AUTO) 0.51 x10^3/uL (1-3.4); LYMPHOCYTES % (AUTO) 6 % (22-44); MD NO; MEAN CORPUSCULAR HEMOGLOBIN 30.4 pg (27.5-34.5); MEAN CORPUSCULAR HGB CONC 33.7 g/dL (33.2-36.2); MEAN PLATELET VOLUME 8.8 fL (7.4-10.4); MONOCYTES # (AUTO) 0.52 x10^3/uL (0.2-0.8); MONOCYTES % (AUTO) 6 % (2-9); NEUTROPHILS # (AUTO) 7.79 x10^3/uL (1.8-6.8); NEUTROPHILS % (AUTO) 88 % (42-75); PLATELET COUNT 153 x10^3/uL (130-400); RED BLOOD COUNT 4.17 x10^6/uL (4.38-5.82); RED CELL DISTRIBUTION WIDTH 16.1 % (9.4-14.8)
[2018-10-17 05:00] LABS: ALBUMIN 2.5 g/dL (3.4-5.0); ANION GAP 8 mmol/L (5-15); CALCIUM 8.3 mg/dL (8.5-10.1); CHLORIDE 106 mmol/L (98-107)
[2018-10-17 05:06] LABS: ALANINE AMINOTRANSFERASE 306 U/L (12-78); ALKALINE PHOSPHATASE 311 U/L (45-117); BILIRUBIN,TOTAL 4.8 mg/dL (0.2-1.0); CHOL/HDL RATIO 6.3; CHOLESTEROL, TOTAL 100 mg/dL (140-239); HDL CHOL % 16 % (26-37); HDL CHOLESTEROL (DIRECT) 16 mg/dL (40-60); LDL CHOLESTEROL,CALCULATED 49 mg/dL (54-169); LDL/HDL RATIO 3.1 (0.5-3.0); TOTAL PROTEIN 6.6 g/dL (6.4-8.2); TRIGLYCERIDES 176 mg/dL (50-200); TROPONIN I < 0.015 ng/mL (0.000-0.045); VLDL CHOLESTEROL 35 mg/dL (0-25)
[2018-10-17] MEDS ORDERED: ASPIRIN 325 MG TABLET EC PO SCH (06:00)
[2018-10-17] MEDS: INSULIN LISPRO 100 UNITS/ML, PEN LOW DOSE SS SQ-INSULIN SCH ×4 (08:59→20:57)
[2018-10-17] MEDS: TAMSULOSIN 0.4 MG CAP.ER.24H PO SCH (08:59)
[2018-10-17] MEDS: CYANOCOBALAMIN 1,000 MCG TABLET PO SCH (08:59)
[2018-10-17] MEDS: CARVEDILOL 6.25 MG TABLET PO SCH ×2 (08:59→20:58)
[2018-10-17] MEDS: FINASTERIDE 5 MG TABLET PO SCH (08:59)
[2018-10-17] MEDS: ASCORBIC ACID 500 MG TABLET PO SCH (09:00)
[2018-10-17] MEDS: FERROUS SULFATE 325 MG TABLET PO SCH (09:00)
[2018-10-17] MEDS: SODIUM CHLORIDE FLUSH 10ML SYR IVF SCH ×2 (09:06→20:57)
[2018-10-17] MEDS ORDERED: REGADENOSON 0.4 MG/5 ML SYRINGE ONE (09:41)
[2018-10-17] MEDS: POLYETHYLENE GLYCOL 17 GM PACKET PO SCH (12:25)
[2018-10-17] MEDS: LISINOPRIL 10 MG TABLET PO SCH (12:25)
[2018-10-17] MEDS ORDERED: ASPI81TA45 PO (15:07)
[2018-10-17] MEDS: FAMOTIDINE 20 MG TABLET PO SCH (20:59)
[2018-10-17] MEDS: LOVASTATIN 20 MG TABLET PO SCH (20:59)
[2018-10-18 02:00] VITALS: BP 162/72
[2018-10-18] MEDS: HEPARIN 5,000 UNITS/ML, 1ML SQ SCH ×2 (03:30→11:30)
[2018-10-18] MEDS ORDERED: ASPIRIN 81 MG TABLET EC PO SCH (06:00)
[2018-10-18] MEDS ORDERED: ASPIRIN 81 MG TABLET EC ONE (06:03)
[2018-10-18 06:55] VITALS: BP 156/72
[2018-10-18] MEDS: FINASTERIDE 5 MG TABLET PO SCH (08:03)
[2018-10-18] MEDS: ASCORBIC ACID 500 MG TABLET PO SCH (08:04)
[2018-10-18] MEDS: CARVEDILOL 6.25 MG TABLET PO SCH (08:04)
[2018-10-18] MEDS: LISINOPRIL 10 MG TABLET PO SCH (08:04)
[2018-10-18] MEDS: TAMSULOSIN 0.4 MG CAP.ER.24H PO SCH (08:04)
[2018-10-18] MEDS: CYANOCOBALAMIN 1,000 MCG TABLET PO SCH (08:04)
[2018-10-18] MEDS: FERROUS SULFATE 325 MG TABLET PO SCH (08:05)
[2018-10-18] MEDS: SODIUM CHLORIDE FLUSH 10ML SYR IVF SCH (08:05)
[2018-10-18] MEDS: POLYETHYLENE GLYCOL 17 GM PACKET PO SCH (08:05)
[2018-10-18] MEDS: INSULIN LISPRO 100 UNITS/ML, PEN LOW DOSE SS SQ-INSULIN SCH ×2 (08:09→11:27)
[2018-10-18] MEDS ORDERED: AMOX1TAB62 PO (12:44)
[2018-10-18 13:19] VITALS: BP 153/85
== END 2018-10-18 16:05 | DRG 280 ==
LOC: ED 16:56 → EDIP 17:50 → 5SO 18:40
PROVIDERS: ADMIT Hospitalist; ATTEND Hospitalist
PROC: 0T9B70Z Drainage of Bladder with Drainage Device, Via Natural or Artificial Opening (ICD-10-PCS; principal; 2018-10-16)
DX: I21.A1 Myocardial infarction type 2 (principal); E43 Unspecified severe protein-calorie malnutrition; T87.44 Infection of amputation stump, left lower extremity; I50.22 Chronic systolic (congestive) heart failure; I69.351 Hemiplegia and hemiparesis following cerebral infarction affecting right dominant side; I11.0 Hypertensive heart disease with heart failure; I25.10 Atherosclerotic heart disease of native coronary artery without angina pectoris; E11.51 Type 2 diabetes mellitus with diabetic peripheral angiopathy without gangrene; E11.65 Type 2 diabetes mellitus with hyperglycemia; E78.5 Hyperlipidemia, unspecified; F17.210 Nicotine dependence, cigarettes, uncomplicated; I25.2 Old myocardial infarction; J44.9 Chronic obstructive pulmonary disease, unspecified; K75.81 Nonalcoholic steatohepatitis (NASH); N40.0 Benign prostatic hyperplasia without lower urinary tract symptoms; Y83.5 Amputation of limb(s) as the cause of abnormal reaction of the patient, or of later complication, without mention of misadventure at the time of the procedure; Z80.9 Family history of malignant neoplasm, unspecified; Z79.4 Long term (current) use of insulin; Z90.49 Acquired absence of other specified parts of digestive tract; Z88.0 Allergy status to penicillin; Z89.511 Acquired absence of right leg below knee; Z89.512 Acquired absence of left leg below knee; Z95.1 Presence of aortocoronary bypass graft; Z95.5 Presence of coronary angioplasty implant and graft
CPT/HCPCS: 36415; 71045; 76700; 78452; 80048; 80053; 80061; 81001; 82040; 82962; 83036; 83880; 84484; 85025; 85610; 85730; 87086; 93005; 93017; 99285; G0378; J1644; J2785; A9502; C9898; J1815; J2270

== ENCOUNTER → 2019-01-05 | Outpatient (CLI) | payer MEDICARE, MEDICAID ==
[~2019-01-05] MED LIST changes: +AMOX1TAB62 PO; +GADOBUTROL 10 MMOL/10 ML PFS ONE; +GLIP5TAB10 PO; +HYDR-3342 PO; +LISI-167 PO; +NITR0.4T28 SL; +OXYC5CAP2 PO
== END | disposition home or self-care (01) ==
LOC: EDSTATUS 12-12 10:00 → RAD 08:38
PROVIDERS: ATTEND Internal Medicine Geriatric Medicine
DX: T87.89 Other complications of amputation stump (principal); Z89.512 Acquired absence of left leg below knee; Y83.9 Surgical procedure, unspecified as the cause of abnormal reaction of the patient, or of later complication, without mention of misadventure at the time of the procedure
CPT/HCPCS: 73723; A9585

== ENCOUNTER → 2019-11-21 | Outpatient (CLI) | payer MEDICAID, MEDICARE ==
[~2019-11-21] MED LIST changes: -ACET-1757 PO; +ACET-2065 PO; +ACET-76 PO; -BISA10SU2 PR; +BISA10SU4 PR; +CIPR500T87 PO; +CYAN-27 PO; -CYAN10005 PO; +DEXT38GE2 PO; +DOXY100T PO; -GADOBUTROL 10 MMOL/10 ML PFS ONE; +GUAI-555 PO; +LOPE2CAP PO; +MORPHINE SULFATE SL
== END | disposition home or self-care (01) ==
LOC: RAD 09:11
PROVIDERS: ATTEND Internal Medicine Geriatric Medicine
DX: A49.9 Bacterial infection, unspecified (principal)
CPT/HCPCS: 36573; 71045; C1751

== ENCOUNTER → 2019-12-20 | Outpatient (CLI) | payer MEDICARE, MEDICAID ==
[~2019-12-20] MED LIST changes: +GADOTERATE 7.5 MMOL/15 ML SYR ONE
== END | disposition home or self-care (01) ==
LOC: RAD 12:23
PROVIDERS: ATTEND Internal Medicine Geriatric Medicine
DX: M62.572 Muscle wasting and atrophy, not elsewhere classified, left ankle and foot (principal); M25.462 Effusion, left knee; A49.9 Bacterial infection, unspecified; I73.9 Peripheral vascular disease, unspecified; E11.8 Type 2 diabetes mellitus with unspecified complications; I69.30 Unspecified sequelae of cerebral infarction; I25.709 Atherosclerosis of coronary artery bypass graft(s), unspecified, with unspecified angina pectoris; E78.5 Hyperlipidemia, unspecified; E53.9 Vitamin B deficiency, unspecified; I25.119 Atherosclerotic heart disease of native coronary artery with unspecified angina pectoris; F39 Unspecified mood [affective] disorder; F31.9 Bipolar disorder, unspecified; Z89.432 Acquired absence of left foot
CPT/HCPCS: 73723; A9575

== ENCOUNTER 2021-02-12 09:32 | Observation (INO) | payer MEDICARE, MEDICAID ==
[~2021-02-12] VITALS: Ht 139.7 cm; Wt 81.1 kg
[~2021-02-12 09:32] MED LIST changes: +AMLO-150 PO; +ATOR40TA PO; +BISA10SU54 PR; -GADOTERATE 7.5 MMOL/15 ML SYR ONE; +INSU100V8 SQ; -POLY17PO29 PO; +POLY17PO50 PO; +SULF-23 PO; -SULF1TAB24 PO
--- NOTE | 2021-02-12 09:54 | NUR ---
PT [facility] FROM [facility]. PT CO INTERMITTENET LEFT CP X1 DAY. 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 PER EMS, SNF NURSE STATED THAT PT HAS HAD AN INCREASE IN WEAKNESS, SLURRED SPEECH AND FREQUESNT FALLS OUT OF WHEELCHAIR FOR THE LAST 3 WEEKS. EMS STATED THAT A STROKE WORKUP WAS COMPLETED AND THERE WAS NOT ANY EVIDENCE OF A NEW STROKE. PT ALSO HAS HAD A DECREASE IN FOOD AND WATER INTAKE OVER THE PAST 3 WEEKS. PT DENIES ANY SOB, CHANGE IN STRENGTH/SENSATION ON HIS LEFT SIDE, COUGH OR FEVER.
--- NOTE | 2021-02-12 10:45 | NUR ---
PT TO CT
--- NOTE | 2021-02-12 11:45 | NUR ---
PT RESTING IN [place] COMFORTABLY. CALL LIGHT WITHIN REACH.
[2021-02-12 12:20] LABS: BASOPHILS % (AUTO) 1 % (0-1); EOSINOPHILS % (AUTO) 2 % (1-7); LYMPHOCYTES % (AUTO) 26 % (22-44); MEAN CORPUSCULAR HEMOGLOBIN 29.5 pg (27.5-34.5); MEAN PLATELET VOLUME 8.3 fL (7.4-10.4); MONOCYTES % (AUTO) 7 % (2-9); NEUTROPHILS % (AUTO) 66 % (42-75); PLATELET COUNT 200 x10^3/uL (130-400); RED BLOOD COUNT 4.76 x10^6/uL (4.38-5.82); RED CELL DISTRIBUTION WIDTH 15.5 % (9.4-14.8)
[2021-02-12 12:33] LABS: ALBUMIN 2.7 g/dL (3.4-5.0); ANION GAP 8 mmol/L (5-15); CHLORIDE 110 mmol/L (98-107)
--- NOTE | 2021-02-12 12:36 | NUR ---
Task rn: left forearm 20 ga started with ultrasound- from which 1 set of blood cultures drawn in sterile manner
[2021-02-12 12:39] LABS: ALANINE AMINOTRANSFERASE 26 U/L (12-78); ALKALINE PHOSPHATASE 117 U/L (45-117); BILIRUBIN,TOTAL 0.9 mg/dL (0.2-1.0); CREATININE 0.86 mg/dL (0.7-1.3); TOTAL PROTEIN 6.9 g/dL (6.4-8.2); TROPONIN I 0.016 ng/mL (0.000-0.045)
--- NOTE | 2021-02-12 13:29 | NUR ---
[facility]. CALL LIGHT WITHIN REACH.
--- NOTE | 2021-02-12 14:20 | NUR ---
HOSPITALIST MEDICAL RESEARCH SCIENTIST AT BEDSIDE
[2021-02-12] MEDS ORDERED: GLUCAGON 1 MG IM PRN (15:00)
[2021-02-12] MEDS ORDERED: ONDANSETRON 2MG/ML, 2ML IVPush PRN (15:00)
[2021-02-12] MEDS ORDERED: DEXTROSE 50%, 50ML SYRINGE IVPush PRN (15:00)
[2021-02-12] MEDS ORDERED: METHOCARBAMOL 500 MG TABLET PO PRN (15:00)
[2021-02-12] MEDS ORDERED: BISACODYL 10 MG SUPP PR PRN (15:00)
[2021-02-12] MEDS ORDERED: OXYcodone IR 5MG TABLET PO PRN (15:00)
[2021-02-12] MEDS ORDERED: POLYETHYLENE GLYCOL 17 GM PACKET PO PRN (15:00)
[2021-02-12] MEDS ORDERED: NITROGLYCERIN 0.4 MG BOTTLE (25 TABS) SL PRN (15:00)
[2021-02-12] MEDS ORDERED: ACETAMINOPHEN 325 MG TABLET PO PRN (15:00)
[2021-02-12] MEDS ORDERED: hydrALAzine 20 MG/ML, 1ML IV PRN (15:00)
[2021-02-12] MEDS ORDERED: DEXTROSE 4 GM TAB.CHEW PO PRN (15:00)
[2021-02-12] MEDS ORDERED: ACETAMINOPHEN 500 MG TABLET PO PRN (15:00)
[2021-02-12] MEDS ORDERED: ONDANSETRON ODT 4 MG PO PRN (15:00)
[2021-02-12] MEDS ORDERED: ENALAPRILAT 1.25 MG/ML, 2ML IVPush PRN (15:00)
[2021-02-12] MEDS ORDERED: LABETALOL 5MG/ML, 20ML IVPush PRN (15:00)
--- NOTE | 2021-02-12 15:27 | NUR ---
PT TO MRI
[2021-02-12] MEDS: INSULIN LISPRO 100 UNITS/ML, PEN SQ-INSULIN SCH ×2 (16:00→20:19)
--- NOTE | 2021-02-12 16:15 | NUR ---
REPORT GIVEN TO ASHLY MILNER.
[2021-02-12 16:50] VITALS: BP 179/80
[2021-02-12] MEDS: SODIUM CHLORIDE 0.9% 1,000 ML IV SCH (17:21)
[2021-02-12] MEDS: ENOXAPARIN 40 MG/0.4 ML SQ SCH (17:22)
[2021-02-12] MEDS: ASPIRIN 325 MG TABLET EC PO SCH (17:30)
[2021-02-12 18:18] LABS: TROPONIN I 0.023 ng/mL (0.000-0.045)
[2021-02-12 18:42] VITALS: BP 152/81
[2021-02-12 18:55] VITALS: BP 151/81
[2021-02-12] MEDS ORDERED: INSULIN GLARGINE 100 UNITS/ML, PEN SQ-INSULIN SCH (21:00)
[2021-02-12] MEDS ORDERED: CARVEDILOL 3.125 MG TABLET PO SCH (21:00)
[2021-02-12] MEDS ORDERED: ATORVASTATIN 40 MG TABLET PO SCH (21:00)
[2021-02-12] MEDS: SODIUM CHLORIDE FLUSH 10ML SYR IVF SCH (21:13)
[2021-02-12] MEDS: OLANZAPINE 5 MG TABLET PO SCH (21:13)
[2021-02-12] MEDS: DIVALPROEX 500 MG TABLET.DR PO SCH (21:13)
[2021-02-13 00:41] LABS: TROPONIN I 0.027 ng/mL (0.000-0.045)
[2021-02-13 02:05] VITALS: BP 147/80
[2021-02-13] MEDS: ASPIRIN 325 MG TABLET EC PO SCH (05:15)
[2021-02-13] MEDS: SODIUM CHLORIDE 0.9% 1,000 ML IV SCH (05:42)
[2021-02-13 06:02] LABS: BASOPHILS % (AUTO) 1 % (0-1); EOSINOPHILS % (AUTO) 2 % (1-7); LYMPHOCYTES % (AUTO) 31 % (22-44); MEAN CORPUSCULAR HEMOGLOBIN 29.7 pg (27.5-34.5); MEAN CORPUSCULAR HGB CONC 33.2 g/dL (33.2-36.2); MEAN PLATELET VOLUME 8.9 fL (7.4-10.4); MONOCYTES % (AUTO) 8 % (2-9); NEUTROPHILS % (AUTO) 58 % (42-75); PLATELET COUNT 182 x10^3/uL (130-400); RED BLOOD COUNT 4.14 x10^6/uL (4.38-5.82); RED CELL DISTRIBUTION WIDTH 15.3 % (9.4-14.8)
[2021-02-13 06:18] LABS: CHLORIDE 113 mmol/L (98-107)
[2021-02-13 06:31] LABS: ANION GAP 11 mmol/L (5-15); CALCIUM 8.1 mg/dL (8.5-10.1); CHOL/HDL RATIO 2.6; CHOLESTEROL, TOTAL 73 mg/dL (140-239); CREATININE 0.72 mg/dL (0.7-1.3); HDL CHOL % 38 % (26-37); HDL CHOLESTEROL (DIRECT) 28 mg/dL (40-60); LDL CHOLESTEROL,CALCULATED 26 mg/dL (54-169); LDL/HDL RATIO 0.9 (0.5-3.0); TRIGLYCERIDES 94 mg/dL (50-200); VLDL CHOLESTEROL 19 mg/dL (0-25)
[2021-02-13 07:42] VITALS: BP 163/75
[2021-02-13] MEDS: INSULIN LISPRO 100 UNITS/ML, PEN SQ-INSULIN SCH ×3 (08:07→16:36)
[2021-02-13] MEDS ORDERED: TAMSULOSIN 0.4 MG CAP.ER.24H PO SCH (09:00)
[2021-02-13] MEDS ORDERED: SENNA/DOCUSATE TABLET PO SCH (09:00)
[2021-02-13] MEDS ORDERED: INSULIN GLARGINE 100 UNITS/ML, PEN SQ-INSULIN SCH (09:00)
[2021-02-13] MEDS ORDERED: MULTIVITAMIN 1 TABLET PO SCH (09:00)
[2021-02-13] MEDS ORDERED: LISINOPRIL 40 MG TABLET PO SCH (09:00)
[2021-02-13] MEDS ORDERED: FINASTERIDE 5 MG TABLET PO SCH (09:00)
[2021-02-13] MEDS ORDERED: FAMOTIDINE 20 MG TABLET PO SCH (09:00)
[2021-02-13] MEDS ORDERED: REGADENOSON 0.4 MG/5 ML SYRINGE ONE (10:36)
[2021-02-13] MEDS: DIVALPROEX 500 MG TABLET.DR PO SCH (12:29)
[2021-02-13] MEDS: OLANZAPINE 5 MG TABLET PO SCH (12:29)
[2021-02-13] MEDS: SODIUM CHLORIDE FLUSH 10ML SYR IVF SCH (12:31)
[2021-02-13 13:15] VITALS: BP 169/85
[2021-02-13] MEDS ORDERED: DOXAZOSIN 1MG TABLET PO SCH (14:30)
[2021-02-13 16:48] VITALS: BP 153/76
[2021-02-13] MEDS: ENOXAPARIN 40 MG/0.4 ML SQ SCH (17:38)
[2021-02-13] MEDS ORDERED: ASPI-963 PO (18:28)
[2021-02-13] MEDS ORDERED: CARVEDILOL 3.125 MG TABLET PO SCH (21:00)
== END 2021-02-13 18:18 ==
LOC: ED 10:26 → INTOOBSV 13:52 → EDIP 13:52 → 4WST 16:26
PROVIDERS: ADMIT Internal Medicine; ATTEND Hospitalist
DX: R07.89 Other chest pain (principal); R47.81 Slurred speech; I69.351 Hemiplegia and hemiparesis following cerebral infarction affecting right dominant side; I16.0 Hypertensive urgency; I25.10 Atherosclerotic heart disease of native coronary artery without angina pectoris; J44.9 Chronic obstructive pulmonary disease, unspecified; I10 Essential (primary) hypertension; R29.810 Facial weakness; E78.5 Hyperlipidemia, unspecified; E11.9 Type 2 diabetes mellitus without complications; F31.9 Bipolar disorder, unspecified; I25.2 Old myocardial infarction; Z89.511 Acquired absence of right leg below knee; Z89.512 Acquired absence of left leg below knee; Z95.1 Presence of aortocoronary bypass graft; Z87.891 Personal history of nicotine dependence; Z79.82 Long term (current) use of aspirin
CPT/HCPCS: 36415; 70450; 70551; 71045; 78452; 80048; 80053; 80061; 82962; 84443; 84484; 85025; 92523; 93005; 93017; 96361; 96372; 96374; 97161; 97165; 99285; A9502; G0378; J1650; J1815; J2785; J7030